=== PATIENT | female | born 1965 | race Two or more races ===

== ENCOUNTER 2016-09-19 08:25 | Inpatient (IN) | payer SELFPAY ==
[2016-09-17 03:26] VITALS: BMI 29.8
[2016-09-19 08:55] LABS: MPV 9.2 fL (7.4-10.4)
[2016-09-19] MEDS ORDERED: LABETALOL 20 MG/4 ML SYRINGE IV PRN (08:55)
[2016-09-19] MEDS ORDERED: hydrALAZINE 20 MG/ML VIAL IV PRN (08:55)
[2016-09-19] MEDS ORDERED: MEPERIDINE 25 MG/ML TUBEX IV PRN (08:55)
[2016-09-19] MEDS ORDERED: FENTANYL 100 MCG/2 ML VIAL IV PRN (08:55)
[2016-09-19] MEDS ORDERED: ONDANSETRON HCL 4 MG/2 ML VIAL IV PRN ×2 (08:55→12:04)
[2016-09-19] MEDS ORDERED: ONDANSETRON HCL 4 MG ODT TAB PO PRN (08:55)
[2016-09-19] MEDS ORDERED: HYDROmorphone 1 MG INJECTION IV PRN ×2 (08:55)
--- NOTE | 2016-09-19 09:00 | HIM.ANES ---
Anesthesia Evaluation & Plan Diagnoses: INTRAMURAL LEIOMYOMA OF UTERUS (09/19/16) EXCESSIVE AND FREQUENT MENSTRUATION WITH IRREGULAR CYCLE (09/19/16) - Focused Review of Systems Physiological: No Hx Depression HX Other Psyco/Soc Problems: anxiety, depression Smoking Status: Never smoker Past Social History: Denies: Amphetamine Use, Barbiturate Use, Benzodiazipine Use, Cocaine Use, Heroin Use, Marijuana Use, Methadone Use, MDMA (Ecstasy) Use, Substance Use Disorder - Focused Physical Exam Mallampati: Class II Thyromental Distance: Greater than 3 Neck: Full Range of Motion Dental: Normal - no significant findings Cardiovascular/Chest: Normal Respiratory: Lungs clear Other: Problem List Problem Status Onset Acute post-hemorrhagic anemia Acute Dysfunctional uterine bleeding Acute Fibroids, intramural Acute Iron deficiency anemia due to chronic blood loss Acute Menorrhagia, premenopausal Acute Migraine Acute Symptomatic anemia Acute Allergies Allergy/AdvReac Type Severity Reaction Status Date / Time No Known Allergies Allergy Verified 09/19/16 08:43 Home Medications Medication Instructions Recorded Last Taken Type Ibuprofen 600 mg PO .TODAY PRN 08/27/16 09/18/16 23:00 History Medroxyprogesterone Acet [Provera] 10 mg PO BID #20 tablet 08/28/16 09/18/16 12: 00 Rx Height and Weight Patient's height 4 ft 9 in Patient's weight 62.596 kg BMI 29.8 - Anesthetic Plan Anesthesia Type: General ASA Class: 2 -: I have examined this patient and reviewed the medical record. The patient has been assessed prior to anesthesia. Risks and benefits of anesthesia and anesthetic technique options have been discussed and all questions answered. The patient accepts the risk and desires me to proceed with the planned anesthetic.
[2016-09-19] MEDS ORDERED: CEFAZOLIN 1 GM VIAL ONE (09:07)
[2016-09-19] MEDS ORDERED: KETAMINE 50 MG/ML SYRINGE IV ONE (11:39)
[2016-09-19] MEDS ORDERED: GLYCOPYRROLATE 1 MG VIAL IM ONE (11:39)
[2016-09-19] MEDS ORDERED: ONDANSETRON HCL 4 MG/2 ML VIAL IV ONE (11:39)
[2016-09-19] MEDS ORDERED: PROPOFOL 200 MG/20 ML VIAL IV ONE (11:39)
[2016-09-19] MEDS ORDERED: SUCCINYLCHOLINE 20 MG/1 ML INJ 10 ML MDV IV ONE (11:39)
[2016-09-19] MEDS ORDERED: LIDOCAINE 100 MG PFS IV ONE (11:39)
[2016-09-19] MEDS ORDERED: KETOROLAC TROMETH 30 MG/ML VIAL IM ONE (11:39)
[2016-09-19] MEDS ORDERED: MIDAZOLAM 2 MG/2 ML VIAL IV ONE (11:39)
[2016-09-19] MEDS ORDERED: DEXAMETHASONE 4 MG/ML VIAL IV ONE (11:39)
[2016-09-19] MEDS ORDERED: HYDROmorphone 2 MG/ML VIAL IM ONE (11:39)
[2016-09-19] MEDS ORDERED: PHENYLEPHRINE 10 MG/ML VIAL IC ONE (11:39)
[2016-09-19] MEDS ORDERED: FENTANYL 100 MCG/2 ML VIAL IV ONE (11:39)
[2016-09-19] MEDS ORDERED: FENTANYL 100 MCG/2 ML VIAL ONE (12:51)
[2016-09-19] MEDS: FENTANYL 100 MCG/2 ML VIAL IV PRN ×2 (12:53→13:03)
--- NOTE | 2016-09-19 13:00 | HIMOPRPT ---
DATE OF PROCEDURE: September 19, 2016 PREOPERATIVE DIAGNOSIS: 1. Uterine fibroids 2. Menorrhagia 3. Anemia POSTOPERATIVE DIAGNOSIS: 1. Uterine fibroids 2. Menorrhagia 3. Anemia PROCEDURE: total abdominal hysterectomy bilateral salpingo-oophorectomy SURGEON: Lewis ANESTHESIOLOGIST: General endotracheal ESTIMATED BLOOD LOSS: 150 cc COMPLICATIONS: None FINDING: Enlarged fibroid uterus consistent with 18 week size left hydrosalpinx with adhesions of the left adnexa to the uterus right hydrosalpinx with adhesions of the right adnexa to the uterus DESCRIPTION OF PROCEDURE: Patient take the operating where anesthesia was found to be adequate. She is prepped and draped in usual sterile fashion. A Pfannenstiel incision was made scalpel carried down to the fascia. The fascia was nicked in the midline and the incision extended laterally with [place] scissors. The fascia was elevated up dissected off rectus muscles. Rectus muscles were midline perineum identified and entered. Peritoneal incision extended superiorly and inferiorly with good visualization of bladder. This time the O 'Ramana O 'Fung retractor was placed and bowels were packed away with moist laparotomy sponges. The uterus was brought out through the abdominal incision. Next the round ligaments were clamped and suture ligated. The broad ligament was clamped transected and suture ligated 0 Vicryl suture. Uterine arteries skeletonized transected. The infundibulopelvic vasculature identified transected on the left side. This was clamped transected and suture ligated 0 Vicryl suture. The left tube and ovary were removed with the uterus. The right utero-ovarian vasculature was identified clamped transected and suture ligated 0 Vicryl suture. A supracervical hysterectomy was then performed to remove the specimen and have better visualization. Next the cervix was removed and the vaginal cuff closed with 0 Vicryl suture in interrupted fashion. The right infundibulopelvic vasculature was then identified and transected after skeletonizing this area out and being careful to note the area of the ureter. The right tube and ovary were then handed off to the awaiting personnel. Pelvis was irrigated with saline hemostasis found to be excellent. The laparotomy sponges and retractor removed. The fascia was closed with a 0 PDS x2. Subcuticular fat was irrigated with saline and closed with 0 plain gut suture in normal fashion. Skin was closed with 4 Monocryl subcuticular fashion. Dermabond was applied to the skin sites. Sponge laps and counts correct x2. Kay catheter was draining clear urine at the time of procedure. Patient was awakened taken to the recovery room in good condition.
[2016-09-19] MEDS: LR 1,000 ML IV SCH ×2 (13:22→18:17)
--- NOTE | 2016-09-19 13:30 | DIRPT ---
CLINICAL DATA: Status post hysterectomy. Incorrect instrument count, reportedly involving a knife handle. EXAM: ABDOMEN - 1 VIEW COMPARISON: None. FINDINGS: No metallic density or radiopaque foreign body is seen on this image of the abdomen and pelvis. No dilated small bowel loops. Physiologic colorectal stool volume. Expected free air overlying the deep pelvis. IMPRESSION: No radiopaque foreign body. These results were called by telephone at the time of interpretation on 09/19/2016 at 1:27 pm to CHAD ANN in the OR, who verbally acknowledged these results. Electronically Signed By: Mansoor Blunt M.D. On: 09/19/2016 13:27
[2016-09-19] MEDS: IBUPROFEN 800 MG TAB PO PRN (15:29)
[2016-09-19] MEDS: OXYCODONE HCL 5 MG TABLET PO PRN ×2 (15:29→20:44)
[2016-09-19] MEDS ORDERED: Vaccine Screening Complete SCH (16:00)
--- NOTE | 2016-09-19 16:25 | OBGYNPROG ---
- Subjective Hospital Day #: 1 Post Op Day: 0 Reports: Abdominal Cramping Pain: Reports: Abdominal, Incision - Objective Vital Signs: Temperature: 97.7 F (09/19/16 13:22) HR: 66 (09/19/16 15:52) RR: 16 (09/19/16 15:52) BP: 117/69 (09/19/16 15:52) Pulse Ox: 99 (09/19/16 13:22) GENERAL: Oriented, No Acute Distress, Drowsy HEENT: Normal RESPIRATORY: Normal - CTA ABDOMEN: Soft INCISION: Incision Clean/Dry/Intact OBGYN Progress Note - PLAN Routine Post Op Care
--- NOTE | 2016-09-19 17:19 | SC.ANESPOS ---
Post-Anesthesia Note LOC: Fully Awake Post-Anesthesia Assessment: Awake, Returned to Baseline, Hemodynamically Stable , Pain Control Adequate Phase I & II Recovery Complete: Yes Apparent Anesthesia Complication: No : N - Vital Signs Blood Pressure: 117/69 Pulse: 66 Resp Rate: 16 O2 Sat: 99 Temp: 97.7 F
[2016-09-19] MEDS ORDERED: KETOROLAC TROMETH 30 MG/ML VIAL IV ONE (18:16)
[2016-09-19] MEDS ORDERED: HYDROmorphone 1 MG INJECTION ONE (22:47)
[2016-09-19] MEDS ORDERED: HYDROmorphone 1 MG INJECTION IV ONE (23:00)
[2016-09-20] MEDS: LR 1,000 ML IV SCH ×2 (01:59→16:17)
[2016-09-20] MEDS: OXYCODONE HCL 5 MG TABLET PO PRN ×2 (06:13→16:15)
[2016-09-20] MEDS: IBUPROFEN 800 MG TAB PO PRN ×3 (06:13→23:50)
[2016-09-20 07:47] LABS: AUTOMATED BASOPHIL 0.1 % (0-2); AUTOMATED LYMPH 24.3 % (17-44); AUTOMATED NEUTROPHIL 65.6 % (45-76); MPV 9.5 fL (7.4-10.4)
[2016-09-20] MEDS ORDERED: FLU VACCINE (Afluria) 0.5 ML DOSE IM ONE (08:00)
[2016-09-20] MEDS ORDERED: SODIUM CHLORIDE 0.9% 3 ML FLUSH FLUSH PRN (10:23)
--- NOTE | 2016-09-20 10:26 | OBGYNPROG ---
- Subjective Hospital Day #: 2 Post Op Day: 1 Denies: Complaints, Abdominal Cramping, Gas Pains, Nausea Pain: Reports: Well Managed, Incision - Objective Vital Signs: Temperature: 98.1 F (09/20/16 09:46) HR: 65 (09/20/16 09:46) RR: 18 (09/20/16 09:46) BP: 114/58 (09/20/16 09:46) Pulse Ox: 99 (09/19/16 17:19) Laboratory Results - last 24 hr 09/20/16 07:13 WBC 5.5 RBC 3.48 L Hgb 7.9 L D Hct 24.6 L MCV 71 L MCH 22.7 L MCHC 32.1 L RDW 20.8 H Plt Count 176 MPV 9.5 Neut % (Auto) 65.6 Lymph % (Auto) 24.3 Riley % (Auto) 10.0 Eos % (Auto) 0.0 Baso % (Auto) 0.1 Absolute Neuts (auto) 3.58 Absolute Lymphs (auto) 1.32 Platelet Estimate Norm RBC Morphology 1+ micro GENERAL: Alert, Oriented, No Acute Distress HEENT: Normal ABDOMEN: Soft INCISION: Incision Clean/Dry/Intact Vaginal Bleeding: None MUSCULOSKELETAL: Normal EXTERMITIES: Moves All Extremeties. negative: Edema OBGYN Progress Note - PLAN Routine Post Op Care, Advance Diet, Ambulate, Discontinue Indwelling Catheter
[2016-09-20] MEDS ORDERED: SODIUM CHLORIDE 0.9% 3 ML FLUSH FLUSH SCH (18:00)
[2016-09-21] MEDS: OXYCODONE HCL 5 MG TABLET PO PRN (02:04)
[2016-09-21 05:55] VITALS: BP 108/59; PULSE 66; TEMP 97.8
--- NOTE | 2016-09-21 10:27 | OBGYNPROG ---
- Subjective Hospital Day #: 2 Post Op Day: 2 Reports: Tolerating Regular Diet, Passing Flatus, Voiding Freely. Denies: Complaints, Abdominal Cramping, Gas Pains, Nausea Pain: Reports: Well Managed, Incision - Objective Vital Signs: Temperature: 97.8 F (09/21/16 05:54) HR: 66 (09/21/16 05:54) RR: 16 (09/21/16 05:54) BP: 108/59 (09/21/16 05:54) Pulse Ox: 98 (09/21/16 05:54) GENERAL: Alert, Oriented, No Acute Distress HEENT: Normal CARDIOVASCULAR/CHEST: Normal ABDOMEN: Soft INCISION: Incision Clean/Dry/Intact Vaginal Bleeding: None MUSCULOSKELETAL: Normal EXTERMITIES: Moves All Extremeties. negative: Edema OBGYN Progress Note - PLAN Routine Post Op Care, Discharge
--- NOTE | 2016-09-21 10:30 | PCM.DCS92 ---
- Primary/Secondary Discharge Diagnoses (1) Dysfunctional uterine bleeding Acute N93.8 - OTHER SPECIFIED ABNORMAL UTERINE AND VAGINAL BLEEDING (2) Fibroids, intramural Acute D25.1 - INTRAMURAL LEIOMYOMA OF UTERUS (3) Iron deficiency anemia due to chronic blood loss Acute D50.0 - IRON DEFICIENCY ANEMIA SECONDARY TO BLOOD LOSS (CHRONIC) (4) Menorrhagia, premenopausal Acute N92.4 - EXCESSIVE BLEEDING IN THE PREMENOPAUSAL PERIOD (5) Symptomatic anemia Acute D64.9 - ANEMIA, UNSPECIFIED - HOSPITAL COURSE Patient was admitted to the hospital and underwent ERICA, BSO in normal fashion. The evening of surgery she had normal output and pain control. On pod 1 mayer was removed and patient tolerated diet. On pod 2 with normal vitals, voiding and good pain control was discharged home. PROCEDURE: total abdominal hysterectomy bilateral salpingo-oophorectomy /Op Complications: None - DISCHARGE INSTRUCTIONS Discharge Disposition: Home Discharge Condition: Good Cognitive Discharge Status: Unimpaired Fuctional Discharge Status: Independent Patient Leaving with Prescriptions?: Yes Prescriptions: Ibuprofen Tablet [Motrin] 800 mg PO TID #30 tab Oxycodone Immediate Release [Oxycodone Immediate Release Tablet] 5 mg PO Q4H PRN #30 tab PRN Reason: Pain - Diet Diet at Discharge: Regular - Activity Activity: No Heavy Lifting, No Driving No Driving for: 2 weeks - Instructions Call Physician for: Sudden/Sever Chest Pain, Foul Smelling Discharge, Pain/ Redness in Calf/Leg, Temperature Above 100.4, Drainiage from Wound - DC Summary Notes Discharge Medications: *See "Discharge Medication List" for a complete list of Home Medications and Discharge Medications.* Obstetric Hospital Course - Admitting Diagnosis Admission Date: 09/19/16 Admission time: 13:22
== END 2016-09-21 11:40 | disposition home or self-care (01) | DRG 743 ==
LOC: SDC 08:25 → MASU 13:33
PROVIDERS: ADMIT Obstetrics & Gynecology; ATTEND Obstetrics & Gynecology
PROC: 0UTC0ZZ Resection of Cervix, Open Approach (ICD-10-PCS; 2016-09-19)
PROC: 0UT20ZZ Resection of Bilateral Ovaries, Open Approach (ICD-10-PCS; 2016-09-19)
PROC: 0UT70ZZ Resection of Bilateral Fallopian Tubes, Open Approach (ICD-10-PCS; 2016-09-19)
PROC: 0UT90ZZ Resection of Uterus, Open Approach (ICD-10-PCS; principal; 2016-09-19 09:10)
DX: N93.8 Other specified abnormal uterine and vaginal bleeding (principal); D25.1 Intramural leiomyoma of uterus; N70.11 Chronic salpingitis; D50.0 Iron deficiency anemia secondary to blood loss (chronic); N92.4 Excessive bleeding in the premenopausal period; N73.6 Female pelvic peritoneal adhesions (postinfective); Z79.899 Other long term (current) drug therapy
CPT/HCPCS: 74000; 81025; 85025; 85027; 86850; 86900; 86901; 90656; 96360; 96361; 96374; 96375; J0330; J0690; J1100; J1170; J1885; J2001; J2250; J2370; J2405; J3010; J3490